=== PATIENT | female | born 1960 | race Caucasian/White ===

== ENCOUNTER → 2024-03-04 | Outpatient (REF) | payer BC ==
[~2024-03-04] MED LIST: FAMOTIDINE20 MG PO; LEVOTHYROXINE88 MCG PO; LIPITOR10 MG PO; ONDANSETRON ODT4 MG PO
== END ==
LOC: US 11:41
PROVIDERS: ATTEND Nurse Practitioner Family
DX: R11.0 Nausea (principal)
CPT/HCPCS: 76700